=== PATIENT | female | born 2000 ===

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

== ENCOUNTER 2021-03-03 16:44 | Outpatient (REF) | payer MEDICAID, SELFPAY ==
[2021-03-05 10:34] LABS: Hepatitis C Ab w Rflx HCV PCR Negative (Negative)
[2021-03-05 12:06] LABS: HIV-1/2 Ag & Ab Screen Negative (Negative)
[2021-03-05 14:43] LABS: Chlamydia Result Negative (Negative); GC Result Negative (Negative)
== END 2021-03-03 16:45 | disposition home or self-care (01) ==
LOC: NCHCN 16:44
PROVIDERS: PCP Physician Assistant; Visit Provider Nurse Practitioner Family
DX: R35.0 Frequency of micturition (principal); Z11.3 Encounter for screening for infections with a predominantly sexual mode of transmission; Z11.4 Encounter for screening for human immunodeficiency virus [HIV]; Z11.59 Encounter for screening for other viral diseases
CPT/HCPCS: 86803; 87389; 87491; 87591; 87480; 87510; 87660

== ENCOUNTER 2021-05-03 19:17 | Outpatient (REF) | payer MEDICAID, SELFPAY ==
[2021-05-05 16:20] LABS: COVID-19 RT-PCR UVMMC Result Negative (Negative)
== END 2021-05-03 19:18 | disposition home or self-care (01) ==
LOC: NCHCN 19:17
PROVIDERS: PCP Physician Assistant; Visit Provider Nurse Practitioner Family
DX: Z20.822 Contact with and (suspected) exposure to COVID-19 (principal)
CPT/HCPCS: U0003

== ENCOUNTER 2021-06-21 16:13 | Outpatient (REF) | payer MEDICAID, SELFPAY ==
[2021-06-23 10:49] LABS: COVID-19 RT-PCR UVMMC Result Negative (Negative)
== END 2021-06-21 16:14 | disposition home or self-care (01) ==
LOC: NCHCN 16:13
PROVIDERS: PCP Physician Assistant; Visit Provider Nurse Practitioner Family
DX: Z20.822 Contact with and (suspected) exposure to COVID-19 (principal); J06.9 Acute upper respiratory infection, unspecified
CPT/HCPCS: U0003

== ENCOUNTER 2022-10-18 15:52 | Outpatient (REF) | payer MEDICAID, SELFPAY ==
--- NOTE | 2022-10-18 15:30 | PAPFT_PTH ---
PATIENT: Dayanara Barnett LOC: [facility]#:[id number] AGE/SX: 22/F ROOM: RE10/18/[address]: Thaddeus Herrera : 2000 BED: DIS: 10/18/2022 SPEC #: [id number] RECD: 10/18/22 18:31 STATUS: LILIANA LEIVA #: [id number] CADE: 10/18/22 15:[address]: Ilda Herrera DEPT: COUNTS INCLUDE 234 BEDS AT THE [facility] Cytology RECD BY: Cristy Mascorro ENTERED: 10/18/22 18:31 SP TYPE: PAPFT OTHR DR: Bj Hernandez Tissues: 1 - CX/ENDOCX FOR PAP SMEARS Procedures: PAP THIN PREP/[facility] Screening Comments: [id number]
== END 2022-10-18 15:53 | disposition home or self-care (01) ==
LOC: NCHCN 15:52
PROVIDERS: PCP Internal Medicine; Visit Provider Nurse Practitioner Family
DX: Z12.4 Encounter for screening for malignant neoplasm of cervix (principal)
CPT/HCPCS: 88142

== ENCOUNTER 2024-11-26 15:57 | Outpatient (REF) | payer MEDICAID, SELFPAY ==
[2024-11-26 20:39] LABS: ALT 33 U/L (14-59); AST 29 U/L (15-37); Albumin 4.4 g/dL (3.4-5.0); Alkaline Phosphatase 103 U/L (46-116); Anion Gap 11.4 mmol/L (3-11); BUN 6 mg/dL (7-18); Bilirubin, Total 0.5 mg/dL (0.2-1.0); CO2 27.6 mmol/L (21.0-32.0); CREATININE 0.8 mg/dL (0.55-1.02); Calcium 9.4 mg/dL (8.5-10.1); Calculated LDL 51 mg/dL (<100); Chloride 105 mmol/L (98-107); Cholesterol 124 mg/dL (<200); Estimated GFR 106.11 (mL/min/1.73m2); Glucose 91 mg/dL (74-106); HDL Cholesterol 66 mg/dL (>or=50); Potassium 3.9 mmol/L (3.5-5.1); Sodium 144 mmol/L (136-145); Total Protein 7.8 g/dL (6.4-8.2); Triglyceride 35 mg/dL (<150)
[2024-11-28 13:09] LABS: Bacterial Vaginosis (BV) Negative (Negative); Candida glabrata Negative (Negative); Candida species group Positive (Negative); Chlamydia Result Negative (Negative); GC Result Negative (Negative); Trichomonas vaginalis Negative (Negative)
== END 2024-11-26 15:58 | disposition home or self-care (01) ==
LOC: NCHCN 15:57
PROVIDERS: PCP Internal Medicine; Visit Provider Nurse Practitioner Family
DX: Z13.220 Encounter for screening for lipoid disorders (principal); Z13.1 Encounter for screening for diabetes mellitus; Z11.3 Encounter for screening for infections with a predominantly sexual mode of transmission
CPT/HCPCS: 80053; 80061; 81513; 87481; 87491; 87591; 87661; 87480; 87510; 87660